=== PATIENT | male | born 1980 | race Caucasian/White ===

== ENCOUNTER 2020-10-13 23:27 | Emergency (ER) | payer SELFPAY ==
[~2020-10-13] VITALS: Ht 175.3 cm; Wt 90.7 kg
[2020-10-13 23:31] VITALS: Ht 175.3 cm; Wt 90.7 kg
[2020-10-14 00:08] VITALS: BP 128/78
== END 2020-10-14 00:08 | disposition home or self-care (01) ==
LOC: ED 23:27
DX: J02.9 Acute pharyngitis, unspecified (principal); M79.10 Myalgia, unspecified site; Z20.828 Contact with and (suspected) exposure to other viral communicable diseases
CPT/HCPCS: J1100